=== PATIENT | female | born 1995 | race African-American/Black ===

== ENCOUNTER 2018-10-02 19:39 | Emergency (ER) | payer MEDICAID ==
[~2018-10-02] VITALS: Ht 172.7 cm; Wt 68.0 kg
[2018-10-03 01:42] VITALS: BP 134/82
== END 2018-10-03 02:17 | disposition left against medical advice (07) ==
LOC: ER 19:39
DX: N93.8 Other specified abnormal uterine and vaginal bleeding (principal); Z53.21 Procedure and treatment not carried out due to patient leaving prior to being seen by health care provider